=== PATIENT | female | born 1960 | race Caucasian/White ===

== ENCOUNTER → 2017-01-28 | Outpatient (CLI) | payer MEDICARE | LOC: KOH-I 11:00 | DX: M79.89 Other specified soft tissue disorders (principal); M79.601 Pain in right arm; E04.1 Nontoxic single thyroid nodule | CPT/HCPCS: 93971 ==

== ENCOUNTER → 2017-01-31 | Outpatient (CLI) | payer MEDICARE | DX: R10.814 Left lower quadrant abdominal tenderness (principal); R10.2 Pelvic and perineal pain; N83.202 Unspecified ovarian cyst, left side | CPT/HCPCS: 76830 ==

== ENCOUNTER → 2017-02-28 | Outpatient (CLI) | payer MEDICARE, OTHER | LOC: KOH-I 14:23 | DX: E04.1 Nontoxic single thyroid nodule (principal); E04.2 Nontoxic multinodular goiter | CPT/HCPCS: 76536 ==

== ENCOUNTER → 2017-03-29 | Outpatient (CLI) | payer MEDICARE, OTHER ==
[~2017-03-29] VITALS: Ht 167.6 cm; Wt 103.0 kg
== END ==
LOC: OPSV 03-11 11:00
DX: S32.000A Wedge compression fracture of unspecified lumbar vertebra, initial encounter for closed fracture (principal); M81.0 Age-related osteoporosis without current pathological fracture
CPT/HCPCS: 96365; J3489; J7050

== ENCOUNTER → 2017-05-16 | Outpatient (CLI) | payer MEDICARE, OTHER | LOC: NM 10:01 | DX: E03.9 Hypothyroidism, unspecified (principal); E04.2 Nontoxic multinodular goiter; E04.1 Nontoxic single thyroid nodule | CPT/HCPCS: 78012; A9516 ==

== ENCOUNTER → 2020-12-19 | Outpatient (CLI) | payer MEDICARE, SELFPAY | LOC: KOH-I 15:27 | DX: M54.5 Low back pain (principal); M51.36 Other intervertebral disc degeneration, lumbar region; M48.061 Spinal stenosis, lumbar region without neurogenic claudication | CPT/HCPCS: 72100; 72220; 73522 ==

== ENCOUNTER → 2020-12-31 | Outpatient (CLI) | payer MEDICARE, SELFPAY | LOC: KOH-I 12:53 | DX: M25.551 Pain in right hip (principal); M25.552 Pain in left hip; M54.16 Radiculopathy, lumbar region; M54.30 Sciatica, unspecified side | CPT/HCPCS: 72148 ==

== ENCOUNTER 2021-10-21 12:43 | Emergency (ER) | payer MEDICARE ==
[~2021-10-21] VITALS: Ht 167.6 cm; Wt 101.2 kg
== END 2021-10-21 18:13 | disposition home or self-care (01) ==
LOC: ER1 12:43
DX: U07.1 COVID-19 (principal); Z23 Encounter for immunization; Z90.49 Acquired absence of other specified parts of digestive tract; E11.9 Type 2 diabetes mellitus without complications; I10 Essential (primary) hypertension; E03.9 Hypothyroidism, unspecified
CPT/HCPCS: 99283; M0245

== ENCOUNTER → 2021-11-17 | Outpatient (CLI) | payer MEDICARE | LOC: KOH-I 12:35 | DX: M54.6 Pain in thoracic spine (principal); M47.814 Spondylosis without myelopathy or radiculopathy, thoracic region | CPT/HCPCS: 72070 ==

== ENCOUNTER → 2022-07-15 | Outpatient (CLI) | payer MEDICARE | LOC: NM 09:39 | DX: I10 Essential (primary) hypertension (principal); R94.31 Abnormal electrocardiogram [ECG] [EKG]; R07.9 Chest pain, unspecified; E11.9 Type 2 diabetes mellitus without complications; E78.5 Hyperlipidemia, unspecified; R06.02 Shortness of breath | CPT/HCPCS: 78452; 93017; A9502; J2785 ==